=== PATIENT | male | born 1990 | race American Indian/Alaskan Native ===

== ENCOUNTER 2018-02-26 04:59 | Emergency (ER) | payer OTHER ==
[~2018-02-26] VITALS: Ht 170.2 cm; Wt 65.9 kg
[2018-02-26 05:01] VITALS: BP 161/95
[2018-02-26] MEDS ORDERED: azithromycin 250mg tablet PO ONE (05:10)
[2018-02-26] MEDS ORDERED: CefTRIAXone 250MG IM Kit w/LIDOcaine IM ONE (05:10)
== END 2018-02-26 05:59 | disposition home or self-care (01) ==
LOC: ER 05:00
DX: A64 Unspecified sexually transmitted disease (principal)
CPT/HCPCS: 96372; 99283; J0696